=== PATIENT | female | born 1985 | race African-American/Black ===

== ENCOUNTER 2018-05-29 18:18 | Emergency (ER) | payer MEDICAID ==
[~2018-05-29] VITALS: Ht 162.6 cm; Wt 76.0 kg
[2018-05-29] MEDS ORDERED: TAMSULOSIN HCL 0.4MG SR CAPSULE PO ONE (19:15)
[2018-05-29] MEDS ORDERED: IBUPROFEN 600MG TABLET PO STA (19:24)
[2018-05-29] MEDS ORDERED: ACETAMINOPHEN 325MG TABLET PO ONE (20:00)
[2018-05-29 20:22] LABS: BASOPHILS % 0.7 % (0.0-2.0); EOSINOPHILS % 2.4 % (0.0-5.0); HEMATOCRIT. 39.3 % (36.0-48.0); HEMOGLOBIN. 13.2 g/dL (12.0-16.0); LYMPHOCYTES % 48.9 % (20.0-50.0); MEAN CORPUSCULAR HEMOGLOBIN 29.8 pg (28.0-32.0); MEAN CORPUSCULAR VOLUME 88.5 fL (81.0-99.0); MEAN PLATELET VOLUME 7.4 fl (7.4-10.4); MONOCYTES % 5.9 % (2.0-8.0); NEUTROPHILS % 42.1 % (40.0-76.0); PLATELET 237 x1000/uL (130-400); RED BLOOD CELL COUNT 4.44 mill/uL (4.2-5.4); RED CELL DISTRIBUTION WIDTH 13.4 % (11.6-14.6)
[2018-05-29 20:32] LABS: CLARITY URINE CLEAR (CLEAR); COLOR URINE YELLOW (YELLOW); KETONES URINE NEGATIVE (NEGATIVE); LEUKOCYTE ESTERASE URINE NEGATIVE (NEGATIVE); NITRITE URINE NEGATIVE (NEGATIVE); OCCULT BLOOD URINE NEGATIVE (NEGATIVE); PH URINE 7.5 (4.5-8.0); PROTEIN URINE NEGATIVE (NEGATIVE)
[2018-05-29 20:56] LABS: CHLORIDE 107 mEq/L (98-107)
[2018-05-29] MEDS ORDERED: KETOROLAC 60MG/2ML VIAL IM ONE (22:30)
[2018-05-29 23:17] VITALS: BP 103/62
== END 2018-05-29 23:18 | disposition home or self-care (01) ==
LOC: ER 18:18
DX: R07.89 Other chest pain (principal); J45.909 Unspecified asthma, uncomplicated; F17.200 Nicotine dependence, unspecified, uncomplicated; Z88.6 Allergy status to analgesic agent; Z88.5 Allergy status to narcotic agent
CPT/HCPCS: 36415; 71045; 80053; 81003; 81025; 85025; 93005; 96372; 99285; J1885; Z7610

== ENCOUNTER 2021-04-17 14:51 | Emergency (ER) | payer MEDICAID ==
[~2021-04-17] VITALS: Ht 167.6 cm; Wt 72.0 kg
[2021-04-17] MEDS ORDERED: ALBUTEROL (0.083%) 2.5MG/3ML NEB HHN ONE (16:00)
[2021-04-17] MEDS ORDERED: IPRATROPIUM BROMIDE (0.02%) 0.5MG/2.5ML NEB HHN ONE (16:00)
[2021-04-17] MEDS ORDERED: METHYLPREDNISOLONE SOD SUCC 125 MG/2 ML VIAL IV ONE (16:00)
[2021-04-17] MEDS ORDERED: TRAMADOL HCL/ACETAMINOPHEN 37.5/325MG TABLET PO ONE (16:30)
[2021-04-17] MEDS ORDERED: ACETAMINOPHEN WITH CODEINE 300/60MG TABLET PO ONE (19:45)
[2021-04-17] MEDS ORDERED: ALBU6.7H9 INH (20:20)
[2021-04-17] MEDS ORDERED: P50 MT (20:20)
[2021-04-17 20:58] VITALS: BP 112/62
== END 2021-04-17 21:00 | disposition home or self-care (01) ==
LOC: ER 14:51
DX: J45.901 Unspecified asthma with (acute) exacerbation (principal); Z88.5 Allergy status to narcotic agent
CPT/HCPCS: 94644; 96374; 99285; J2930; Z7610